=== PATIENT | female | born 1975 | race Caucasian/White ===

== ENCOUNTER → 2017-06-16 | Outpatient (CLI) | payer BC | LOC: CIMAGING 14:48 | PROVIDERS: ATTEND Obstetrics & Gynecology | DX: Z12.31 Encounter for screening mammogram for malignant neoplasm of breast (principal) ==

== ENCOUNTER → 2018-07-17 | Outpatient (CLI) | payer BC | LOC: CLAB 12:37 | PROVIDERS: ATTEND Family Medicine | DX: R20.0 Anesthesia of skin (principal); M51.36 Other intervertebral disc degeneration, lumbar region | CPT/HCPCS: 72100-PO ==